=== PATIENT | female | born 1950 | race Caucasian/White ===

== ENCOUNTER 2019-10-22 10:12 | Inpatient (IN) | payer MEDICARE, BC ==
[~2019-10-22] VITALS: Ht 162.6 cm; Wt 75.5 kg
[2019-10-22 10:49] LABS: HEMOGLOBIN 10.8 g/dl (12.0-16.0); MEAN CORPUSCULAR HEMOGLOBIN 27.5 PG (27.0-31.0); RED BLOOD COUNT 3.92 X10'6 (4.20-5.60); RED CELL DISTRIBUTION WIDTH 13.4 % (11.5-14.5); WHITE BLOOD COUNT 14.1 X10'3 (4.5-11.0)
[2019-10-22 10:50] LABS: BASOPHILS % (AUTO) 0.3 % (0-1); EOSINOPHILS % (AUTO) 0.1 % (0-6); HEMATOCRIT 32.3 % (35.0-45.0); LYMPHOCYTES # (AUTO) 1.9 X10'3 (1.1-4.8); LYMPHOCYTES % (AUTO) 13.2 % (21-51); MEAN CORPUSCULAR HGB CONC 33.4 g/dL (33.0-36.5); MEAN CORPUSCULAR VOLUME 82.3 FL (78-98); MEAN PLATELET VOLUME 7.8 FL (7.4-10.4); MONOCYTES # (AUTO) 0.9 X10'3 (0-0.9); MONOCYTES % (AUTO) 6.4 % (2-12); NEUTROPHILS # (AUTO) 11.3 X10'3 (1.8-7.7); PLATELET COUNT 548 X10'3 (140-440)
[2019-10-22 11:01] LABS: ALANINE AMINOTRANSFERASE 22 U/L (12-78); ALBUMIN 2.4 G/DL (3.4-5.0); ALBUMIN/GLOBULIN RATIO 0.3 (1.1-1.5); ALKALINE PHOSPHATASE 119 IU/L (46-116); ANION GAP 12 (8-16); ASPARTATE AMINO TRANSFERASE 45 U/L (10-37); BILIRUBIN,TOTAL 0.8 MG/DL (0.1-1.0); BLOOD UREA NITROGEN 51 MG/DL (7-18); BUN/CREATININE RATIO 21.3 (6.6-38.0); CALCIUM 9.4 MG/DL (8.5-10.1); CHLORIDE 83 MMOL/L (99-107); CREATININE 2.39 MG/DL (0.40-0.90); LIPASE 145 U/L (73-393); POTASSIUM 5.3 MMOL/L (3.5-5.1); TOTAL CARBON DIOXIDE 19.8 MMOL/L (24-32); TOTAL PROTEIN 10.7 G/DL (6.4-8.2); eGFR 20 ML/MIN
[2019-10-22 11:06] LABS: GLUCOSE 461 MG/DL (70-104); SODIUM 115 MMOL/L (135-145)
[2019-10-22 11:08] LABS: LARGE PLATELETS FEW; MICROCYTOSIS 1+; PLATELET ESTIMATE INCREASED; TOTAL CELLS COUNTED 100
[2019-10-22 11:14] LABS: CLARITY,URINE CLOUDY (Clear); COLOR,URINE YELLOW (Yellow); GLUCOSE, URINE >=1000 mg/dl (Neg); KETONES,URINE TRACE mg/dl (Neg); LEUKOCYTE ESTERASE ,URINE SMALL (Neg); NITRITES, URINE NEGATIVE (Neg); OCCULT BLOOD,URINE LARGE (Neg); PROTEIN,URINE 100 mg/dl (Neg); UROBILINOGEN,URINE 0.2 E.U/dL (0.2-1.0)
[2019-10-22 11:15] LABS: UA COLLECTION TYPE STRAIGHT CATH
[2019-10-22 11:19] LABS: BACTERIA,URINE 4+ /HPF (Neg); MUCUS STRANDS FEW /LPF (Neg); RBC,URINE 50-100 /HPF (0-2); SQUAMOUS EPITHELIAL CELL,UR FEW /LPF (FEW); WBC,URINE TNTC /HPF (0-4)
[2019-10-22] MEDS ORDERED: insulin regular, human 10 units/0.1 ml syringe IV ONE (11:20)
[2019-10-22] MEDS ORDERED: normal saline 1000ml 1,000 ML IV ONE (11:20)
[2019-10-22] MEDS ORDERED: insulin regular, human U-100 3ml vial - multi-dose IV ONE (11:25)
[2019-10-22] MEDS ORDERED: CefTRIAXone/D5W-Rocephin 1gm 50 ML IV ONE (11:45)
[2019-10-22] MEDS ORDERED: sodium bicarbonate (8.4%) inj. 100 MEQ in dextrose 5% water 500ml 500 ML IV PRN (11:58)
[2019-10-22] MEDS ORDERED: sodium bicarbonate (8.4%) inj. 50 MEQ in dextrose 5% water 500ml 250 ML IV PRN (11:58)
[2019-10-22] MEDS: normal saline 1000ml 1,000 ML IV SCH ×6 (11:58→21:18)
[2019-10-22] MEDS ORDERED: HYDROcodone/acetaminophen 10/325mg tab PO PRN (12:00)
[2019-10-22] MEDS ORDERED: magnesium hydroxide 30ml (MOM) UD suspension PO PRN (12:00)
[2019-10-22] MEDS ORDERED: magnesium 4gm in 100ml NS 100 ML IV PRN (12:00)
[2019-10-22] MEDS ORDERED: sodium phosphate inj. 30 MMOL in dextrose 5%-water 240 ML IV PRN (12:00)
[2019-10-22] MEDS ORDERED: HYDROcodone/acetaminophen 5mg/325mg tablet PO PRN (12:00)
[2019-10-22] MEDS ORDERED: insulin regular, human U-100 3ml vial - multi-dose IV PRN (12:00)
[2019-10-22] MEDS ORDERED: acetaminophen 325mg tablet PO PRN ×2 (12:00)
[2019-10-22] MEDS ORDERED: potassium CL 10mEq/100ml bag 100 ML IV PRN ×4 (12:00)
[2019-10-22] MEDS ORDERED: ondansetron/PF 4mg/2ml inj IV PRN (12:00)
[2019-10-22] MEDS ORDERED: magnesium Cl slow-release 64mg tablet PO PRN (12:00)
[2019-10-22] MEDS ORDERED: magnesium 2GM in 50ml NS 50 ML IV PRN (12:00)
[2019-10-22] MEDS ORDERED: potassium Cl 20 mEq SR tablet PO PRN ×4 (12:00)
[2019-10-22] MEDS ORDERED: Neutra Phos packet PO PRN (12:00)
[2019-10-22] MEDS ORDERED: mag hydrox/Alum hydrox/simeth 30ml oral suspension PO PRN (12:00)
[2019-10-22] MEDS ORDERED: sodium phosphate inj. 15 MMOL in dextrose 5%-water 245 ML IV PRN (12:00)
[2019-10-22] MEDS ORDERED: FENO145T26 PO (12:17)
[2019-10-22] MEDS ORDERED: VENL75TA90 PO (12:17)
[2019-10-22] MEDS ORDERED: FOLI0.4T14 PO (12:17)
[2019-10-22] MEDS ORDERED: LEVO75TA7 PO (12:17)
[2019-10-22] MEDS ORDERED: CARV25TA5 PO (12:17)
[2019-10-22] MEDS ORDERED: TIZA6CAP7 PO (12:17)
[2019-10-22] MEDS ORDERED: GLIM2TAB6 PO (12:17)
--- NOTE | 2019-10-22 12:27 | NUR ---
PT GOING TO CT SCAN ,PT BLD CULTURE HAS TO BE DRAWN YET THEN WILL ADMIN IV ABX,PT MED REC DONE BY PHARMACISIT ,PT URINATED ON BED CLEANED THE BED AND CHANGED THE BED LINEN,PT HAS PRESSURE ULCER ON HER RGT BUTTOCKS ,PICTURE TAKEN AND PLACED ON PT CHART.
--- NOTE | 2019-10-22 12:37 | NUR ---
PT CAME TO ROOM.WILL DRAW BLD CULTURE BEFORE ADMIN IV ABX.
--- NOTE | 2019-10-22 12:43 | NUR ---
CALLED PHARMACY REGARDING PT INSULIN DRIP AND ROCEPHIN , PER [facility] THE ROCEPHIN IS READY NOT INSULIN DRIP THEY DO NOT HAVE THE LABELS.
--- NOTE | 2019-10-22 12:58 | NUR ---
CALLED DR VELA TO VERIFY THE N.S BOLUS ORDER PER BRANHAM WHO SPOKE TO DR VELA SAID TO GIVE 2ND L IN 1:30 HR,WILL FOLLOW THE ORDERS.
[2019-10-22] MEDS: Insulin Reg/NS 100units/100mL 100 ML IV SCH (13:35)
[2019-10-22 13:53] LABS: ALBUMIN 2.2 G/DL (3.4-5.0); ANION GAP 13 (8-16); BLOOD UREA NITROGEN 49 MG/DL (7-18); BUN/CREATININE RATIO 23.2 (6.6-38.0); CHLORIDE 88 MMOL/L (99-107); CREATININE 2.11 MG/DL (0.40-0.90); GLUCOSE 378 MG/DL (70-104); PHOSPHORUS 3.2 MG/DL (2.3-4.5); POTASSIUM 4.6 MMOL/L (3.5-5.1); TOTAL CARBON DIOXIDE 19.2 MMOL/L (24-32); eGFR 23 ML/MIN
[2019-10-22 13:57] LABS: SODIUM 120 MMOL/L (135-145)
[2019-10-22 15:43] LABS: ANION GAP 10 (8-16); BLOOD UREA NITROGEN 48 MG/DL (7-18); BUN/CREATININE RATIO 23.6 (6.6-38.0); CALCIUM 8.6 MG/DL (8.5-10.1); CHLORIDE 95 MMOL/L (99-107); CREATININE 2.03 MG/DL (0.40-0.90); GLUCOSE 290 MG/DL (70-104); PHOSPHORUS 2.7 MG/DL (2.3-4.5); SODIUM 124 MMOL/L (135-145); TOTAL CARBON DIOXIDE 18.8 MMOL/L (24-32); eGFR 24 ML/MIN
[2019-10-22 15:45] LABS: POTASSIUM 4.4 MMOL/L (3.5-5.1)
--- NOTE | 2019-10-22 16:10 | NUR ---
PT HAS FOL;EY CATH 18 F PLACED PER GRISELDA BRANHAM ORDER.PT URINE FOUL ODOR WITH HEMATURIA,URINE LOOKS CLOUDY.PT TOLERATED THE PROCEDURE WELL,PT DENIES ANY CONCERN.
[2019-10-22] MEDS: potassium CL 20mEq in D5-1/2NS 1,000 ML IV PRN ×2 (16:26→21:18)
--- NOTE | 2019-10-22 16:41 | NUR ---
pt was all wet diaper was all wet,pt changed ,new linen spread,pt gates cath started drainging urine ,pt going to 3014 b called report to sarah teague.
[2019-10-22] MEDS ORDERED: tizanidine 4mg tablet PO PRN (16:50)
[2019-10-22 17:15] VITALS: BP 146/80
[2019-10-22 18:00] VITALS: BP 171/72
--- NOTE | 2019-10-22 18:20 | NUR ---
Problems reprioritized. Patient report given, questions answered & plan of care reviewed with Lydia BOBO.
--- NOTE | 2019-10-22 18:26 | NUR ---
Patient in room PCU 3014. I have received report from JERAMIE Iyer and had the opportunity to ask questions and assume patient care.
[2019-10-22] MEDS ORDERED: carVEDilol 12.5mg tablet PO SCH (19:46)
[2019-10-22] MEDS: venlafaxine XR 75mg capsule (Q24H) PO SCH (19:58)
[2019-10-22] MEDS: K and/or MAG REPLACEMENT MC SCH (19:58)
[2019-10-22] MEDS: fenofibrate 145mg tablet PO SCH (19:58)
[2019-10-22] MEDS: heparin, porcine 5000 units/ml vial SQ SCH (19:58)
[2019-10-22] MEDS: levoTHYROXINE 75mcg tablet PO SCH (19:58)
[2019-10-22] MEDS ORDERED: K and/or MAG REPLACEMENT MC SCH (20:00)
[2019-10-22] MEDS ORDERED: temazepam 15mg capsule PO PRN (21:00)
[2019-10-22 22:00] VITALS: BP 154/72
[2019-10-22 22:12] LABS: ALBUMIN 1.8 G/DL (3.4-5.0); ANION GAP 11 (8-16); BLOOD UREA NITROGEN 35 MG/DL (7-18); CALCIUM 8.1 MG/DL (8.5-10.1); CHLORIDE 99 MMOL/L (99-107); CREATININE 1.75 MG/DL (0.40-0.90); GLUCOSE 141 MG/DL (70-104); POTASSIUM 4.3 MMOL/L (3.5-5.1); SODIUM 130 MMOL/L (135-145); TOTAL CARBON DIOXIDE 20.4 MMOL/L (24-32); eGFR 29 ML/MIN
[2019-10-22 22:30] LABS: PHOSPHORUS 1.6 MG/DL (2.3-4.5)
[2019-10-23] VITALS (7 sets, daily range): BP systolic 111–143; BP diastolic 58–81
--- NOTE | 2019-10-23 00:28 | NUR ---
PAGER ID: [phone] MESSAGE: Britt. Davila here for nonketonic hyperglycemia. Anion 10, Co2: 20.4 patient started eating. Humalog orders needed -Lydia [phone]
[2019-10-23] MEDS ORDERED: dextrose 50%-water 50ml dispensing syringe IV PRN ×4 (00:50→11:15)
[2019-10-23] MEDS ORDERED: dextrose ORAL solution 15 GM/59 ML bottle PO PRN ×4 (00:50→11:15)
[2019-10-23] MEDS ORDERED: glucagon, human recombinant 1mg kit SUBCUT PRN ×2 (00:50→11:15)
[2019-10-23 01:07] LABS: BASOPHILS % (AUTO) 0.2 % (0-1); EOSINOPHILS # (AUTO) 0.1 X10'3 (0-0.9); EOSINOPHILS % (AUTO) 0.5 % (0-6); HEMATOCRIT 26.2 % (35.0-45.0); HEMOGLOBIN 8.7 g/dl (12.0-16.0); LYMPHOCYTES # (AUTO) 1.4 X10'3 (1.1-4.8); LYMPHOCYTES % (AUTO) 8.9 % (21-51); MEAN CORPUSCULAR HEMOGLOBIN 27.2 PG (27.0-31.0); MEAN CORPUSCULAR HGB CONC 33.3 g/dL (33.0-36.5); MEAN CORPUSCULAR VOLUME 81.8 FL (78-98); MEAN PLATELET VOLUME 7.6 FL (7.4-10.4); MONOCYTES # (AUTO) 0.9 X10'3 (0-0.9); MONOCYTES % (AUTO) 5.8 % (2-12); NEUTROPHILS # (AUTO) 13.1 X10'3 (1.8-7.7); NEUTROPHILS % (AUTO) 84.6 % (42-75); PLATELET COUNT 389 X10'3 (140-440); RED CELL DISTRIBUTION WIDTH 13.4 % (11.5-14.5); WHITE BLOOD COUNT 15.4 X10'3 (4.5-11.0)
[2019-10-23 01:22] LABS: ALANINE AMINOTRANSFERASE 16 U/L (12-78); ALBUMIN 1.7 G/DL (3.4-5.0); ALBUMIN/GLOBULIN RATIO 0.3 (1.1-1.5); ALKALINE PHOSPHATASE 84 IU/L (46-116); ANION GAP 8 (8-16); ASPARTATE AMINO TRANSFERASE 33 U/L (10-37); BILIRUBIN,TOTAL 0.6 MG/DL (0.1-1.0); BLOOD UREA NITROGEN 34 MG/DL (7-18); BUN/CREATININE RATIO 21.5 (6.6-38.0); CALCIUM 7.7 MG/DL (8.5-10.1); CHLORIDE 100 MMOL/L (99-107); CREATININE 1.58 MG/DL (0.40-0.90); GLUCOSE 230 MG/DL (70-104); POTASSIUM 4.7 MMOL/L (3.5-5.1); SODIUM 125 MMOL/L (135-145); TOTAL CARBON DIOXIDE 17.5 MMOL/L (24-32); TOTAL PROTEIN 7.6 G/DL (6.4-8.2); eGFR 32 ML/MIN
[2019-10-23 01:25] LABS: MAGNESIUM 1.4 MG/DL (1.5-2.4); PHOSPHORUS 1.7 MG/DL (2.3-4.5)
[2019-10-23] MEDS: potassium CL 20mEq in D5-1/2NS 1,000 ML IV PRN (01:38)
[2019-10-23] MEDS: insulin Lispro (HumaLOG) vial - multi-dose SQ SCH ×3 (02:10→19:36)
--- NOTE | 2019-10-23 06:07 | NUR ---
Problems reprioritized. Patient report given, questions answered & plan of care reviewed with JERAMIE Iyer.
--- NOTE | 2019-10-23 06:12 | NUR ---
Patient in room PCU 3014B. I have received report from Lydia BOBO and had the opportunity to ask questions and assume patient care.
[2019-10-23] MEDS: Insulin Reg/NS 100units/100mL 100 ML IV SCH (06:19)
[2019-10-23 07:42] LABS: ALBUMIN 1.5 G/DL (3.4-5.0); ANION GAP 8 (8-16); BLOOD UREA NITROGEN 27 MG/DL (7-18); BUN/CREATININE RATIO 19.3 (6.6-38.0); CALCIUM 7.6 MG/DL (8.5-10.1); CHLORIDE 102 MMOL/L (99-107); GLUCOSE 174 MG/DL (70-104); PHOSPHORUS 1.5 MG/DL (2.3-4.5); POTASSIUM 4.8 MMOL/L (3.5-5.1); SODIUM 127 MMOL/L (135-145); TOTAL CARBON DIOXIDE 16.6 MMOL/L (24-32); eGFR 37 ML/MIN
[2019-10-23] MEDS: K and/or MAG REPLACEMENT MC SCH ×2 (08:00→20:00)
[2019-10-23] MEDS: normal saline 1000ml 1,000 ML IV SCH ×2 (08:01→17:36)
[2019-10-23] MEDS: CefTRIAXone/D5W-Rocephin 1gm 50 ML IV SCH (08:01)
[2019-10-23] MEDS: fenofibrate 145mg tablet PO SCH (08:02)
[2019-10-23] MEDS: levoTHYROXINE 75mcg tablet PO SCH (08:02)
[2019-10-23] MEDS: venlafaxine XR 75mg capsule (Q24H) PO SCH (08:02)
[2019-10-23] MEDS: folic acid 1mg tablet PO SCH (08:02)
[2019-10-23] MEDS: heparin, porcine 5000 units/ml vial SQ SCH ×2 (08:03→19:28)
--- NOTE | 2019-10-23 08:58 | NUR ---
PAGER ID: [phone] MESSAGE: Shireen olivas [phone]. RE Rayray Burton 1054M. Pt bicarb still trending down, glucose consistent in 150-160's, other values not correcting. Have questions about patient. Please call me. Thanks!
--- NOTE | 2019-10-23 09:08 | NUR ---
Order for ABG from Dr. Dan. Ordered at this time and page sent to respiratory to come draw ABG
[2019-10-23 09:23] LABS: HEMOGLOBIN A1C > 14.0 % (4.5-6.2)
--- NOTE | 2019-10-23 10:00 | NUR ---
PAGER ID: [phone] MESSAGE: Shireen olivas [phone]. RE Rayray Burton 2577S. Pt states she takes Coreg 25mg but cuts it in half and takes 12.5mg BID. Held 25mg dose this AM, BP 125/75 this AM. Do you want to adjust dosing? Thanks! Still awaiting ABG result.
[2019-10-23 10:01] LABS: ABG BASE EXCESS -9.5 mmol/L (-2.0-3.0); ABG HCO3 14.9 mmol/L (22.0-26.0); ABG PCO2 (T) 27.7 mmHg (35.0-45.0); ABG PH (T) 7.348 (7.350-7.450); ABG PO2 (T) 114.7 mmHg (83-108); ALLEN'S TEST POSITIVE; FCOHb 0.3 % (0.5-1.5); FMetHb 0.2 % (0.3-1.12); FO2Hb 97.5 % (94-100); TOTAL HEMOGLOBIN 9.9 G/dl (12.0-16.0)
[2019-10-23] MEDS ORDERED: insulin Lispro (HumaLOG) vial - multi-dose SQ SCH (11:15)
[2019-10-23] MEDS ORDERED: MESSAGE TO PHARMACY PO ONE (11:15)
[2019-10-23 11:44] LABS: ALBUMIN 1.6 G/DL (3.4-5.0); ANION GAP 8 (8-16); BLOOD UREA NITROGEN 25 MG/DL (7-18); BUN/CREATININE RATIO 17.7 (6.6-38.0); CALCIUM 7.6 MG/DL (8.5-10.1); CHLORIDE 101 MMOL/L (99-107); CREATININE 1.41 MG/DL (0.40-0.90); GLUCOSE 128 MG/DL (70-104); MAGNESIUM 1.2 MG/DL (1.5-2.4); PHOSPHORUS 1.6 MG/DL (2.3-4.5); POTASSIUM 4.6 MMOL/L (3.5-5.1); SODIUM 127 MMOL/L (135-145); eGFR 37 ML/MIN
[2019-10-23] MEDS: insulin glargine (Lantus) pen - multi-dose SQ SCH ×2 (13:13→21:36)
[2019-10-23 16:31] LABS: ALBUMIN 1.6 G/DL (3.4-5.0); ANION GAP 6 (8-16); BLOOD UREA NITROGEN 24 MG/DL (7-18); BUN/CREATININE RATIO 16.4 (6.6-38.0); CALCIUM 7.7 MG/DL (8.5-10.1); CHLORIDE 102 MMOL/L (99-107); CREATININE 1.46 MG/DL (0.40-0.90); GLUCOSE 142 MG/DL (70-104); MAGNESIUM 1.3 MG/DL (1.5-2.4); PHOSPHORUS 1.8 MG/DL (2.3-4.5); POTASSIUM 5.3 MMOL/L (3.5-5.1); SODIUM 127 MMOL/L (135-145); TOTAL CARBON DIOXIDE 18.8 MMOL/L (24-32); eGFR 35 ML/MIN
--- NOTE | 2019-10-23 16:44 | NUR ---
Patient has been experiencing intermittent hallucinations through out the day, is aware of this, states that this has happened in the past when she has been ill. She reports experiencing visual hallucinations, seeing animals outside and around the room that are not present. She is awake, alert, easily reassured and is aware of this experience. She has no other complaints at this time. Will continue to monitor.
--- NOTE | 2019-10-23 18:30 | NUR ---
Problems reprioritized. Patient report given, questions answered & plan of care reviewed with Erma BOBO.
--- NOTE | 2019-10-23 18:32 | NUR ---
Patient in room PCU 3014. I have received report from Wan Iyer RN and had the opportunity to ask questions and assume patient care.
[2019-10-23] MEDS: lactobacillus rhamnosus 10,000 MMU CELLS/CAPSULE PO SCH (19:28)
[2019-10-23] MEDS: carVEDilol 12.5mg tablet PO SCH (19:31)
--- NOTE | 2019-10-23 20:02 | NUR ---
DM/Malnutrition consult. A1c greater than 14%; visited at bedside and given written DM education handout with verbal review, discussed CHO counting, types of carbs, serving sizes, etc. Pt reports she was taken off metformin 6 months ago and prescribed glimipiride. Encouraged pt to follow up with her PCP regarding A1c greater than 14%. Pt reports in the past month her appetite has decreased somewhat and feels like she has lost some weight however is not concerned about the wt loss (is happy about it). Reports usual weight between 160-187 lbs, current weight is 166 lbs. One meal documented, 50% PO Intake. No edema. Appears visibly well nourished with no visible fat or muscle wasting. No malnutrition at this time. Addendum: 10/23/19 at [address] Amended: Links added.
--- NOTE | 2019-10-23 20:34 | NUR ---
DM/Malnutrition consult. A1c greater than 14%; visited at bedside and given written DM education handout with verbal review, discussed CHO counting, types of carbs, serving sizes, etc. Pt reports she was taken off metformin 6 months ago and prescribed glimipiride. Encouraged pt to follow up with her PCP regarding A1c greater than 14%. Pt reports in the past month her appetite has decreased somewhat and feels like she has lost some weight however is not concerned about the wt loss (is happy about it). Reports usual weight between 160-187 lbs, current weight is 166 lbs. One meal documented, 50% PO Intake. No edema. Appears visibly well nourished with no visible fat or muscle wasting. No malnutrition at this time. Addendum: 10/23/19 at [address] Amended: Links added.
[2019-10-23] MEDS ORDERED: insulin glargine (Lantus) pen - multi-dose SQ SCH (21:00)
[2019-10-23 21:26] LABS: CLARITY,URINE CLOUDY (Clear); COLOR,URINE YELLOW (Yellow); GLUCOSE, URINE 100 mg/dl (Neg); KETONES,URINE NEGATIVE (Neg); LEUKOCYTE ESTERASE ,URINE MODERATE (Neg); NITRITES, URINE NEGATIVE (Neg); OCCULT BLOOD,URINE LARGE (Neg); PH,URINE 5.5 (4.8-8.0); PROTEIN,URINE 30 mg/dl (Neg)
[2019-10-23 21:30] LABS: UA COLLECTION TYPE FOLEY CATH
[2019-10-23 21:31] LABS: BACTERIA,URINE FEW /HPF (Neg); RBC,URINE 20-50 /HPF (0-2); SQUAMOUS EPITHELIAL CELL,UR FEW /LPF (FEW); WBC,URINE 50-100 /HPF (0-4)
[2019-10-24] MEDS: normal saline 1000ml 1,000 ML IV SCH (00:37)
[2019-10-24 02:00] VITALS: BP 135/67
[2019-10-24 05:44] LABS: BASOPHILS # (AUTO) 0.1 X10'3 (0-0.2); BASOPHILS % (AUTO) 0.9 % (0-1); EOSINOPHILS # (AUTO) 0.2 X10'3 (0-0.9); EOSINOPHILS % (AUTO) 2.1 % (0-6); HEMATOCRIT 25.6 % (35.0-45.0); HEMOGLOBIN 8.4 g/dl (12.0-16.0); LYMPHOCYTES # (AUTO) 2.2 X10'3 (1.1-4.8); LYMPHOCYTES % (AUTO) 22.1 % (21-51); MEAN CORPUSCULAR HGB CONC 32.8 g/dL (33.0-36.5); MEAN CORPUSCULAR VOLUME 82.4 FL (78-98); MEAN PLATELET VOLUME 7.4 FL (7.4-10.4); MONOCYTES # (AUTO) 0.9 X10'3 (0-0.9); MONOCYTES % (AUTO) 9.4 % (2-12); NEUTROPHILS # (AUTO) 6.5 X10'3 (1.8-7.7); NEUTROPHILS % (AUTO) 65.5 % (42-75); PLATELET COUNT 392 X10'3 (140-440); RED BLOOD COUNT 3.11 X10'6 (4.20-5.60); RED CELL DISTRIBUTION WIDTH 13.9 % (11.5-14.5)
[2019-10-24 06:00] VITALS: BP 148/70
[2019-10-24 06:11] LABS: ALANINE AMINOTRANSFERASE 16 U/L (12-78); ALBUMIN 1.5 G/DL (3.4-5.0); ALBUMIN/GLOBULIN RATIO 0.3 (1.1-1.5); ALKALINE PHOSPHATASE 79 IU/L (46-116); ANION GAP 10 (8-16); ASPARTATE AMINO TRANSFERASE 40 U/L (10-37); BILIRUBIN,TOTAL 0.4 MG/DL (0.1-1.0); BLOOD UREA NITROGEN 17 MG/DL (7-18); BUN/CREATININE RATIO 14.4 (6.6-38.0); CALCIUM 7.7 MG/DL (8.5-10.1); CHLORIDE 104 MMOL/L (99-107); CREATININE 1.18 MG/DL (0.40-0.90); GLUCOSE 103 MG/DL (70-104); MAGNESIUM 2.6 MG/DL (1.5-2.4); PHOSPHORUS 2.8 MG/DL (2.3-4.5); POTASSIUM 4.7 MMOL/L (3.5-5.1); SODIUM 131 MMOL/L (135-145); TOTAL CARBON DIOXIDE 17.3 MMOL/L (24-32); TOTAL PROTEIN 7.4 G/DL (6.4-8.2); eGFR 45 ML/MIN
--- NOTE | 2019-10-24 06:30 | NUR ---
Patient in room PCU 3014. I have received report from JERAMIE RODAS and had the opportunity to ask questions and assume patient care.
--- NOTE | 2019-10-24 06:52 | NUR ---
Problems reprioritized. Patient report given, questions answered & plan of care reviewed with JERAMIE Marks.
[2019-10-24] MEDS: K and/or MAG REPLACEMENT MC SCH (08:00)
[2019-10-24] MEDS: CefTRIAXone/D5W-Rocephin 1gm 50 ML IV SCH (09:01)
[2019-10-24] MEDS: lactobacillus rhamnosus 10,000 MMU CELLS/CAPSULE PO SCH (09:02)
[2019-10-24] MEDS: carVEDilol 12.5mg tablet PO SCH (09:02)
[2019-10-24] MEDS: venlafaxine XR 75mg capsule (Q24H) PO SCH ×3 (09:03→11:02)
[2019-10-24] MEDS: folic acid 1mg tablet PO SCH (09:03)
[2019-10-24] MEDS: levoTHYROXINE 75mcg tablet PO SCH (09:04)
[2019-10-24] MEDS: fenofibrate 145mg tablet PO SCH (09:04)
[2019-10-24] MEDS: heparin, porcine 5000 units/ml vial SQ SCH (09:05)
[2019-10-24] MEDS: insulin Lispro (HumaLOG) vial - multi-dose SQ SCH ×2 (09:13→14:01)
--- NOTE | 2019-10-24 10:30 | NUR ---
PAGED VENDING MECHANIC : [phone], DR. VELA REQUESTING HOME PT/NURSING FOR DISCHARGE TODAY. RUBY [phone]. TY
[2019-10-24] MEDS ORDERED: SYRI-641 SUBCUT (10:47)
[2019-10-24] MEDS ORDERED: INSU100V11 SQ (10:47)
[2019-10-24] MEDS ORDERED: LINA5TAB4 PO (10:47)
[2019-10-24] MEDS ORDERED: LANTUS SQ (10:47)
[2019-10-24] MEDS ORDERED: SULF1TAB49 PO (10:50)
[2019-10-24 11:00] VITALS: BP 143/69
--- NOTE | 2019-10-24 12:54 | NUR ---
PAGER ID: [phone] MESSAGE: DR. VELA, [id number]/VICKI. NEED CLARIFICATION OF RX FOR INSULIN SYRINGE PLEASE. RUBY [id number]. TY
--- NOTE | 2019-10-24 13:29 | NUR ---
PAGER ID: [phone] MESSAGE: DR. VELA, [id number]/VICKI, I MADE MED ERROR, YOU ASKED ME TO GIVE HER ZANAFLEX, FOR CRAMPS, I ACCIDENTALLY GAVE A SECOND DOSE OF EFFEXOR XR 75 MG AT 1101. RUBY [id number]. TY
--- NOTE | 2019-10-24 13:41 | NUR ---
PAGER ID: [phone] MESSAGE: DR. VELA, [id number]/VICKI, PLEASE CALL ME BACK REGARDING MED ERROR. , RUBY [phone]. TY
--- NOTE | 2019-10-29 13:33 | NUR ---
Case Management DC follow up: spoke to pt via telephone. S/P:weakness, UTI Reports: "doing pretty good, my son is helping me". Denies: acute/continuous cp, emergent SOB, resp distress, vertigo, syncope, significant weakness, blurry vision, N/V, PARKER, emergent general pain, abd tenderness/distension, bladder distention, pain. Pt verbalizes FC in place draining to gravity, clear, no problems. Verbalizes understanding of s/s that warrant 9-11/ER visit for evaluation. Went over DC packet instructions r/t DM diet, AFO brace, FC instructions/care, attending [facility] diabetic classes. pt not sent home w/Diabetic Survival packet. pt states she and son are "trying to understand the medications", son administering insulin injections. HHS/has been at home Q day per pt Nurse, PT. Advised pt to discuss needs w/HHS. Verbalizes not understanding of new DM Rx & instructions. Has resumed current Rx/taking as ordered, no ase r/t polypharmacy. Reminded to stop Glimepiride per orders. Pt states she has not read or gone over DC packet instructions, per this conv pt has stated not knowing about any of the DC instructions. Acknowledges need to schedule/keep follow up appts w/ PCP/Cesar 10/29/19 1530. Pt verbalizes understanding to take DC packet to PCP today, request diabetic survival packet, schedule diabetic classes and to schedule follow up for Dr Walters within 2 weeks to DC FC. pt does not acknowledge getting instructions at DC. no further questions at this time.
== END 2019-10-24 15:43 | disposition home health service (06) | DRG 637 ==
LOC: ER 10:13 → ED HOLD 11:58 → EDBEDREQ 15:16 → PCU 3S 17:56
PROVIDERS: ADMIT Family Medicine; ATTEND Family Medicine
DX: E11.00 Type 2 diabetes mellitus with hyperosmolarity without nonketotic hyperglycemic-hyperosmolar coma (NKHHC) (principal); E43 Unspecified severe protein-calorie malnutrition; N17.0 Acute kidney failure with tubular necrosis; N13.6 Pyonephrosis; E87.1 Hypo-osmolality and hyponatremia; B96.20 Unspecified Escherichia coli [E. coli] as the cause of diseases classified elsewhere; D64.9 Anemia, unspecified; E03.9 Hypothyroidism, unspecified; E11.22 Type 2 diabetes mellitus with diabetic chronic kidney disease; E78.5 Hyperlipidemia, unspecified; E11.65 Type 2 diabetes mellitus with hyperglycemia; E83.39 Other disorders of phosphorus metabolism; E83.42 Hypomagnesemia; E87.5 Hyperkalemia; G35 Multiple sclerosis; I12.9 Hypertensive chronic kidney disease with stage 1 through stage 4 chronic kidney disease, or unspecified chronic kidney disease; N18.9 Chronic kidney disease, unspecified; R33.8 Other retention of urine; Z66 Do not resuscitate; Z90.710 Acquired absence of both cervix and uterus; Z79.4 Long term (current) use of insulin
CPT/HCPCS: 36415; 36600; 74176; 80048; 80053; 81001; 82803; 82948; 83036; 83605; 83690; 83735; 84100; 84145; 84443; 84484; 85018; 85025; 87040; 87077; 87081; 87088; 87186; 93005; 97110; 97116; 97161; 97530; 99285; G0378; J0696; J1644; J1815; J3475; J7030; J7060

== ENCOUNTER 2021-02-09 12:01 | Emergency (ER) | payer MEDICARE, BC ==
[~2021-02-09] VITALS: Ht 162.6 cm; Wt 76.0 kg
[~2021-02-09 12:01] MED LIST: CARV25TA5 PO; FENO145T26 PO; FOLI0.4T14 PO; INSU100V11 SQ; LANTUS SQ; LEVO75TA7 PO; LINA5TAB4 PO; SYRI-641 SUBCUT; TIZA6CAP7 PO; VENL75TA90 PO
[2021-02-09 12:40] VITALS: BP 160/90
== END 2021-02-09 12:47 | disposition home or self-care (01) ==
LOC: ER 12:02
DX: U07.1 COVID-19 (principal); R05.9 Cough, unspecified; R43.8 Other disturbances of smell and taste; Z90.49 Acquired absence of other specified parts of digestive tract; Z88.0 Allergy status to penicillin; Z79.4 Long term (current) use of insulin; Z79.899 Other long term (current) drug therapy
CPT/HCPCS: 36415; 99283; U0003; U0005